=== PATIENT | female | born 1955 | race Caucasian/White ===

== ENCOUNTER → 2017-12-15 | Outpatient (CLI) | payer MEDICARE, BC ==
[~2017-12-15] MED LIST: ALBUTEROL NEBULIZER PO; BIOTIN PO; BUDE10.2 PO; CALC200T3 PO; CALCIUM PO; CELE200C PO; CITA40TA12 PO; COQ10 PO; DEXT1TAB3 PO; DIFL5DRO EACHEYE; DILT240C77 PO; DRON400T PO; FURO-93 PO; GLUC1TAB9 PO; LEVO150T61 PO; LORA10TA3 PO; MAGNESIUM PO; MEDROL DOSE PACK PO; METH5TAB6 PO; METO-93 PO; METO25TA91 PO; MVI PO; NEURONTIN PO; OMEP-110 PO; OXYC-307 PO; OXYC5TAB3 PO; POTA10TA4 PO; POTA20TA14 PO; PROVENTIL MDI PO; SILD20TA PO; VALA500T4 PO; VITAMIN D3 PO; WARF10TA6 PO; WARF7.5T6 PO; ZOLP10TA PO; [UNRECOGNIZED DRUG - OTHER] EACHEYE
[2017-12-15 12:40] LABS: BASOPHILS # (AUTO) 0.05 x10^3/uL (0-0.1); BASOPHILS % (AUTO) 1 % (0-1); EOSINOPHILS # (AUTO) 0.19 x10^3/uL (0-0.4); EOSINOPHILS % (AUTO) 2 % (1-7); LYMPHOCYTES # (AUTO) 1.94 x10^3/uL (1-3.4); LYMPHOCYTES % (AUTO) 21 % (22-44); MD NO; MEAN CORPUSCULAR HEMOGLOBIN 31.2 pg (27.0-34.8); MEAN CORPUSCULAR HGB CONC 33.1 g/dL (32.4-35.8); MEAN CORPUSCULAR VOLUME 94.4 fL (80-100); MEAN PLATELET VOLUME 9.3 fL (7.4-10.4); MONOCYTES # (AUTO) 0.66 x10^3/uL (0.2-0.8); MONOCYTES % (AUTO) 7 % (2-9); NEUTROPHILS # (AUTO) 6.51 x10^3/uL (1.8-6.8); NEUTROPHILS % (AUTO) 70 % (42-75); PLATELET COUNT 249 x10^3/uL (130-400); RED BLOOD COUNT 4.66 x10^6/uL (3.82-5.3); RED CELL DISTRIBUTION WIDTH 14.3 % (9.6-15.2)
[2017-12-15 12:52] LABS: ANION GAP 5 mmol/L (5-15); CHLORIDE 106 mmol/L (98-107)
[2017-12-15 13:05] LABS: ALANINE AMINOTRANSFERASE 33 U/L (12-78); ALBUMIN 3.6 g/dL (3.4-5.0); ALKALINE PHOSPHATASE 88 U/L (45-117); BILIRUBIN,TOTAL 0.3 mg/dL (0.2-1.0); CALCIUM 8.7 mg/dL (8.5-10.1); CHOL/HDL RATIO 2.5; CHOLESTEROL, TOTAL 165 mg/dL (140-239); CREATININE 0.87 mg/dL (0.55-1.02); HDL CHOL % 39 % (28-40); HDL CHOLESTEROL (DIRECT) 65 mg/dL (40-60); LDL CHOLESTEROL,CALCULATED 82 mg/dL (54-169); LDL/HDL RATIO 1.3 (0.5-3.0); T4 (THYROXINE) 12.9 mcg/dL (4.8-13.9); TOTAL PROTEIN 7.7 g/dL (6.4-8.2); TRIGLYCERIDES 90 mg/dL (50-200); VLDL CHOLESTEROL 18 mg/dL (0-25)
== END | disposition home or self-care (01) ==
LOC: CFH 09:09
PROVIDERS: ATTEND Internal Medicine Cardiovascular Disease
DX: M51.34 Other intervertebral disc degeneration, thoracic region (principal); M41.86 Other forms of scoliosis, lumbar region; M19.071 Primary osteoarthritis, right ankle and foot; G89.29 Other chronic pain; I10 Essential (primary) hypertension; E78.5 Hyperlipidemia, unspecified
CPT/HCPCS: 36415; 72072; 72100; 80053; 80061; 84436; 84481; 85025

== ENCOUNTER 2018-05-24 12:31 | Emergency (ER) | payer MEDICARE, BC ==
[~2018-05-24] VITALS: Ht 160 cm; Wt 143.0 kg
[~2018-05-24 12:31] MED LIST changes: +WARF10TA43 PO; -WARF10TA6 PO; +WARF7.5T46 PO; -WARF7.5T6 PO
[2018-05-24] MEDS ORDERED: ALBUTEROL/IPRATROPIUM 2.5MG/0.5MG, 3 ML ONE (13:16)
[2018-05-24] MEDS ORDERED: ALBUTEROL/IPRATROPIUM 2.5MG/0.5MG, 3 ML NPPB ONE (13:30)
[2018-05-24 13:33] LABS: BASOPHILS # (AUTO) 0.04 x10^3/uL (0-0.1); BASOPHILS % (AUTO) 1 % (0-1); EOSINOPHILS # (AUTO) 0.27 x10^3/uL (0-0.4); EOSINOPHILS % (AUTO) 3 % (1-7); LYMPHOCYTES # (AUTO) 1.46 x10^3/uL (1-3.4); LYMPHOCYTES % (AUTO) 16 % (22-44); MD NO; MEAN CORPUSCULAR HEMOGLOBIN 30.8 pg (27.0-34.8); MEAN CORPUSCULAR VOLUME 93.3 fL (80-100); MEAN PLATELET VOLUME 8.9 fL (7.4-10.4); MONOCYTES # (AUTO) 0.59 x10^3/uL (0.2-0.8); MONOCYTES % (AUTO) 7 % (2-9); NEUTROPHILS # (AUTO) 6.73 x10^3/uL (1.8-6.8); NEUTROPHILS % (AUTO) 74 % (42-75); PLATELET COUNT 269 x10^3/uL (130-400); RED BLOOD COUNT 4.51 x10^6/uL (3.82-5.3); RED CELL DISTRIBUTION WIDTH 13.8 % (9.6-15.2)
[2018-05-24 13:38] LABS: ALBUMIN 3.2 g/dL (3.4-5.0); ANION GAP 6 mmol/L (5-15); CALCIUM 8.6 mg/dL (8.5-10.1); CHLORIDE 107 mmol/L (98-107)
[2018-05-24 13:42] LABS: TROPONIN I < 0.015 ng/mL (0.000-0.045)
[2018-05-24 14:03] LABS: INTERNATIONAL NORMALIZED RATIO 2.84 (0.93-1.1); PROTHROMBIN TIME 28.9 Seconds (9.6-11.5)
[2018-05-24] MEDS ORDERED: OMNIPAQUE 350 MG/ML, 150 ML BOTTLE ONE (14:30)
[2018-05-24 15:48] VITALS: BP 136/62
== END 2018-05-24 15:51 | disposition home or self-care (01) ==
LOC: ED 13:45
DX: J45.41 Moderate persistent asthma with (acute) exacerbation (principal); J02.8 Acute pharyngitis due to other specified organisms; J04.0 Acute laryngitis; J31.0 Chronic rhinitis
CPT/HCPCS: 36415; 71045; 71275; 80048; 82040; 83880; 84484; 85025; 85610; 93005; 94640; 99285; J7512; Q9967; J7620

== ENCOUNTER → 2018-09-28 | Outpatient (CLI) | payer MEDICARE, BC ==
[2018-09-28 12:57] LABS: INTERNATIONAL NORMALIZED RATIO 1.28 (0.93-1.1); PROTHROMBIN TIME 13.2 Seconds (9.6-11.5)
== END | disposition home or self-care (01) ==
LOC: CFH 10:37
PROVIDERS: ATTEND Internal Medicine Cardiovascular Disease
DX: I48.2 Chronic atrial fibrillation (principal); Z79.01 Long term (current) use of anticoagulants
CPT/HCPCS: 36415; 85610

== ENCOUNTER → 2018-11-08 | Outpatient (CLI) | payer MEDICARE, BC | END | disposition home or self-care (01) | LOC: CVU 14:39 | PROVIDERS: ATTEND Internal Medicine Cardiovascular Disease | DX: I08.1 Rheumatic disorders of both mitral and tricuspid valves (principal); I27.0 Primary pulmonary hypertension; I48.91 Unspecified atrial fibrillation; E78.5 Hyperlipidemia, unspecified; Z87.891 Personal history of nicotine dependence | CPT/HCPCS: 93306 ==

== ENCOUNTER → 2018-12-20 | Outpatient (CLI) | payer MEDICARE, BC ==
[~2018-12-20] MED LIST changes: +LORA-247 PO; -LORA10TA3 PO
== END | disposition home or self-care (01) ==
LOC: CFH 14:43
PROVIDERS: ATTEND Physician Assistant
DX: M50.323 Other cervical disc degeneration at C6-C7 level (principal); M51.35 Other intervertebral disc degeneration, thoracolumbar region; M25.78 Osteophyte, vertebrae; M48.061 Spinal stenosis, lumbar region without neurogenic claudication; M41.82 Other forms of scoliosis, cervical region; M48.02 Spinal stenosis, cervical region
CPT/HCPCS: 72040; 72110

== ENCOUNTER → 2019-01-01 | Outpatient (CLI) | payer MEDICARE, BC ==
[~2019-01-01] MED LIST changes: +FENTANYL PF 100 MCG/2ML ONE; +FLUMAZENIL 0.1 MG/1 ML, 5ML ONE; +GADOBUTROL 10 MMOL/10 ML PFS ONE; +MIDAZOLAM 1 MG/ML, 5ML ONE; +NALOXONE 1 MG/ML, 2ML ONE
== END | disposition home or self-care (01) ==
LOC: RAD 08:27
PROVIDERS: ATTEND Physician Assistant
DX: M48.02 Spinal stenosis, cervical region (principal); G31.84 Mild cognitive impairment of uncertain or unknown etiology; M25.78 Osteophyte, vertebrae
CPT/HCPCS: 70553; 72141; A9585; J2250; J3010; 99156; 99157; J2310

== ENCOUNTER → 2019-04-12 | Outpatient (CLI) | payer MEDICARE, BC ==
[~2019-04-12] MED LIST changes: -FENTANYL PF 100 MCG/2ML ONE; -FLUMAZENIL 0.1 MG/1 ML, 5ML ONE; -GADOBUTROL 10 MMOL/10 ML PFS ONE; -MIDAZOLAM 1 MG/ML, 5ML ONE; -NALOXONE 1 MG/ML, 2ML ONE
== END | disposition home or self-care (01) ==
LOC: CFH 14:52
PROVIDERS: ATTEND Physician Assistant
DX: M25.521 Pain in right elbow (principal)

== ENCOUNTER 2019-11-08 10:58 | Emergency (ER) | payer MEDICARE, BC ==
[~2019-11-08] VITALS: Ht 160 cm; Wt 136.4 kg
[2019-11-08] MEDS ORDERED: SODIUM CHLORIDE FLUSH 10ML SYR IVF ONE (11:30)
--- NOTE | 2019-11-08 11:46 | NUR ---
Presents with palpitations/increasing sob x 4 days. Hx of afib/flutter. Compliant with coumadin/dilt/lopressor/multaq. Hx of electrical cardioversion Hr irregular on cardiac tech (between 115-140) b/p stable 133/96 Provider to bedside to run labs/call cardiologogist then formulate plan Large bore piv placed & cxr at bedside
[2019-11-08 12:01] LABS: BASOPHILS # (AUTO) 0.04 x10^3/uL (0-0.1); BASOPHILS % (AUTO) 1 % (0-1); EOSINOPHILS # (AUTO) 0.25 x10^3/uL (0-0.4); EOSINOPHILS % (AUTO) 4 % (1-7); LYMPHOCYTES # (AUTO) 2.41 x10^3/uL (1-3.4); LYMPHOCYTES % (AUTO) 35 % (22-44); MD NO; MEAN CORPUSCULAR HEMOGLOBIN 31.7 pg (27.0-34.8); MEAN CORPUSCULAR HGB CONC 32.3 g/dL (32.4-35.8); MEAN CORPUSCULAR VOLUME 98.1 fL (80-100); MEAN PLATELET VOLUME 9.2 fL (7.4-10.4); MONOCYTES # (AUTO) 0.51 x10^3/uL (0.2-0.8); MONOCYTES % (AUTO) 7 % (2-9); NEUTROPHILS # (AUTO) 3.77 x10^3/uL (1.8-6.8); NEUTROPHILS % (AUTO) 54 % (42-75); PLATELET COUNT 303 x10^3/uL (130-400); RED CELL DISTRIBUTION WIDTH 13.2 % (9.6-15.2)
[2019-11-08 12:05] LABS: INTERNATIONAL NORMALIZED RATIO 2.29 (0.93-1.1); PROTHROMBIN TIME 23.3 Seconds (9.6-11.5)
[2019-11-08 12:12] LABS: ALANINE AMINOTRANSFERASE 33 U/L (12-78); ALBUMIN 3.9 g/dL (3.4-5.0); ANION GAP 3 mmol/L (5-15); CALCIUM 8.9 mg/dL (8.5-10.1); CHLORIDE 106 mmol/L (98-107)
[2019-11-08 12:18] LABS: ALKALINE PHOSPHATASE 77 U/L (45-117); BILIRUBIN,TOTAL 0.3 mg/dL (0.2-1.0); TOTAL PROTEIN 8.1 g/dL (6.4-8.2); TROPONIN I < 0.015 ng/mL (0.000-0.045)
--- NOTE | 2019-11-08 12:24 | NUR ---
RECEIVED REPORT FROM ANKIT TALAVERA. PT RESTING ON GURVision 360 Degres (V3D). HR 93-123. ERP AWARE. NADN. ALL OTHER VSS.
[2019-11-08] MEDS ORDERED: PROPOFOL 10 MG/ML, 20ML IVPush ONE (13:00)
[2019-11-08] MEDS ORDERED: PROPOFOL 10 MG/ML, 20ML ONE (13:03)
--- NOTE | 2019-11-08 13:55 | NUR ---
1308 50 PROPOFOL GIVEN 1309 20 PROPOFOL GIVEN 1309 30 PROPROFOL GIVEN 1311 PT SHOCKED AT 200J 1312 END OF PROCEDURE PT NOTED TO BE BACK INTO SR AFTER 1 SHOCK. PT TOLERATED WELL. O2 INCREASED FROM 3L NC BASELINE TO 6 L NC SATING 90%.
[2019-11-08 13:58] VITALS: BP 124/62
--- NOTE | 2019-11-08 13:58 | NUR ---
SEE PAPER CHART FOR VS.
== END 2019-11-08 14:32 ==
LOC: ED 14:26
DX: I48.0 Paroxysmal atrial fibrillation (principal); I10 Essential (primary) hypertension; J45.909 Unspecified asthma, uncomplicated; Z86.718 Personal history of other venous thrombosis and embolism; Z79.01 Long term (current) use of anticoagulants
CPT/HCPCS: 36415; 71045; 80053; 83735; 83880; 84443; 84484; 85025; 85610; 92960; 93005; 99285

== ENCOUNTER → 2019-11-30 | Outpatient (CLI) | payer MEDICARE, BC | END | disposition home or self-care (01) | LOC: CFH 10:04 | PROVIDERS: ATTEND Nurse Practitioner Primary Care | DX: M85.80 Other specified disorders of bone density and structure, unspecified site (principal); E78.2 Mixed hyperlipidemia; Z78.0 Asymptomatic menopausal state | CPT/HCPCS: 77080 ==